=== PATIENT | female | born 1945 | race Caucasian/White ===

== ENCOUNTER → 2024-02-22 10:52 | Outpatient (REF) | payer MEDICARE, BC, SELFPAY ==
[2024-02-22 12:41] LABS: % Basophils 0.7 % (0-2); % Eosinophils 2.6 % (0-6); % Immature Granulocytes 0.6 % (0-0.5); % Lymphocytes 18.8 % (20.5-51.1); % Monocytes 8.8 % (1.7-9.3); % Neutrophils 68.5 % (42.2-75.2); Absolute Basophils 0.1 10^3/uL (0-0.2); Absolute Eosinophils 0.2 10^3/uL (0-0.7); Absolute Lymphocytes 1.4 10^3/uL (1.2-3.4); Absolute Monocytes 0.6 10^3/uL (0.1-0.6); Absolute Neutrophils 4.9 10^3/uL (1.4-6.5); Hematocrit 40.4 % (37.0-47.0); Mean Corp Hgb Conc. 32.2 g/dL (33.0-37.0); Mean Corpuscular Hgb 29.5 pg (27.0-31.0); Mean Corpuscular Volume 91.6 fL (81.0-99.0); Mean Platelet Volume 10.7 fL (7.4-10.4); Nucleated Red Blood Cells % 0 %; Platelet Count 234 10^3/uL (130-400); Red Blood Cell Count 4.41 10^6/uL (4.20-5.40); Red Cell Dist. Width 14.8 % (11.5-14.5); White Blood Cell Count 7.2 10^3/uL (4.8-10.8)
[2024-02-22 12:54] LABS: Erythrocyte Sed Rate 10 mm/hour (0-20)
[2024-02-22 13:19] LABS: ALT (SGPT) 25 U/L (0-35); AST (SGOT) 25 U/L (14-36); Albumin 4.6 g/dl (3.5-5.0); Alkaline Phosphatase 76 U/L (38-126); Blood Urea Nitrogen 14 mg/dl (7-17); Calcium 10.2 mg/dl (8.4-10.2); Carbon Dioxide 29 mmol/L (22-30); Chloride 100 mmol/L (98-107); Glucose 75 mg/dl (70-99); Potassium 4.8 mmol/L (3.5-5.1); Sodium 138 mmol/L (135-145); Total Bilirubin 0.5 mg/dl (0.2-1.3); Total Protein 7.1 g/dl (6.3-8.2); eGFR > 60.00
[2024-02-22 13:20] LABS: C-Reactive Protein < 5.00 mg/L (0.0-10.00)
[2024-02-22 13:27] LABS: Complement C3 109 mg/dl (88-165)
[2024-02-24 02:08] LABS: ANA, IgG Reflex to HEp-2 Detected (None Detected)
[2024-02-24 02:11] LABS: ds-DNA Ab, IgG Reflex To Titer 4 IU (0-24)
[2024-02-24 07:58] LABS: Smith/RNP (ENA), IgG 3 Units (0-19)
[2024-02-24 09:10] LABS: Cardiolipin IgA Antibody <10 APL (<=11); Cardiolipin IgM Antibody 15 MPL (<=12); Cardiolipin Igg Antibody <10 GPL (<=14)
[2024-02-24 09:51] LABS: Smith (ENA) Antibody, IgG 2 AU/mL (0-40)
[2024-02-25 06:20] LABS: ANA, HEp-2, IgG Detected (<1:80)
[2024-02-25 06:24] LABS: ANA Pattern Homogeneous
== END ==
LOC: HWLAB 10:52
PROVIDERS: ATTENDING PHYSICIAN Internal Medicine Rheumatology; FAMILY PHYSICIAN Family Medicine
DX: M15.0 Primary generalized (osteo)arthritis (principal); M35.00 Sjogren syndrome, unspecified; M79.7 Fibromyalgia
CPT/HCPCS: 36415; 80053; 85025; 85652; 86038; 86039; 86140; 86147; 86160; 86225; 86235

== ENCOUNTER → 2024-06-19 11:52 | Outpatient (REF) | payer MEDICARE, BC, SELFPAY ==
[2024-06-19 14:19] LABS: ALT (SGPT) 30 U/L (0-35); AST (SGOT) 33 U/L (14-36); Albumin 4.6 g/dl (3.5-5.0); Alkaline Phosphatase 67 U/L (38-126); Blood Urea Nitrogen 13 mg/dl (7-17); Calcium 9.7 mg/dl (8.4-10.2); Carbon Dioxide 32 mmol/L (22-30); Chloride 100 mmol/L (98-107); Glucose 83 mg/dl (70-99); Potassium 4.4 mmol/L (3.5-5.1); Sodium 138 mmol/L (135-145); Total Bilirubin 0.5 mg/dl (0.2-1.3); Total Protein 6.9 g/dl (6.3-8.2); eGFR > 60.00
[2024-06-19 15:50] LABS: Folate > 20.0 ng/ml (2.76-20); Vitamin B12 659 pg/ml (239-931)
[2024-06-20 09:05] LABS: Glycohemoglobin (HgbA1c) 5.3 % (4.0-5.6)
== END ==
LOC: REG 11:52
PROVIDERS: ATTENDING PHYSICIAN Family Medicine; OTHER PHYSICIAN Internal Medicine Critical Care Medicine; OTHER PHYSICIAN Internal Medicine Gastroenterology; OTHER PHYSICIAN Internal Medicine Rheumatology; OTHER PHYSICIAN Obstetrics & Gynecology
DX: M79.7 Fibromyalgia (principal); M81.0 Age-related osteoporosis without current pathological fracture; G62.9 Polyneuropathy, unspecified; R73.9 Hyperglycemia, unspecified; R53.83 Other fatigue; R20.2 Paresthesia of skin
CPT/HCPCS: 36415; 80053; 82607; 82746; 83036

== ENCOUNTER → 2024-10-29 09:12 | Outpatient (REF) | payer MEDICARE, BC, SELFPAY ==
[2024-10-29 12:36] LABS: % Basophils 0.2 % (0-2); % Eosinophils 0.7 % (0-6); % Immature Granulocytes 0.3 % (0-0.5); % Lymphocytes 2.9 % (20.5-51.1); % Monocytes 3.5 % (1.7-9.3); % Neutrophils 92.4 % (42.2-75.2); Absolute Eosinophils 0.1 10^3/uL (0-0.7); Absolute Lymphocytes 0.4 10^3/uL (1.2-3.4); Absolute Monocytes 0.4 10^3/uL (0.1-0.6); Absolute Neutrophils 11.3 10^3/uL (1.4-6.5); Hematocrit 41.8 % (37.0-47.0); Hemoglobin 13.2 g/dL (12.0-16.0); Mean Corp Hgb Conc. 31.6 g/dL (33.0-37.0); Mean Corpuscular Hgb 29.1 pg (27.0-31.0); Mean Corpuscular Volume 92.1 fL (81.0-99.0); Mean Platelet Volume 11.7 fL (7.4-10.4); Nucleated Red Blood Cells % 0 %; Platelet Count 136 10^3/uL (130-400); Red Blood Cell Count 4.54 10^6/uL (4.20-5.40); Red Cell Dist. Width 14.7 % (11.5-14.5); White Blood Cell Count 12.2 10^3/uL (4.8-10.8)
[2024-10-29 12:58] LABS: ALT (SGPT) 27 U/L (0-35); AST (SGOT) 30 U/L (14-36); Albumin 4.6 g/dl (3.5-5.0); Alkaline Phosphatase 61 U/L (38-126); Blood Urea Nitrogen 20 mg/dl (7-17); Calcium 9.2 mg/dl (8.4-10.2); Carbon Dioxide 29 mmol/L (22-30); Chloride 101 mmol/L (98-107); Glucose 97 mg/dl (70-99); Potassium 4.4 mmol/L (3.5-5.1); Sodium 138 mmol/L (135-145); Total Bilirubin 0.7 mg/dl (0.2-1.3); Total Protein 6.9 g/dl (6.3-8.2); eGFR > 60.00
[2024-10-29 13:32] LABS: Erythrocyte Sed Rate 10 mm/hour (0-20)
[2024-10-31 14:05] LABS: Rheumatoid Agglutinin Less Than 10 IU (<10 IU)
[2024-10-31 16:33] LABS: Lyme Antibody Screen, EIA Negative (Negative)
[2024-11-01 00:05] LABS: ANA, IgG Reflex to HEp-2 Detected (None Detected)
[2024-11-01 01:28] LABS: CCP Antibody IgG/IgA 4 Units (0-19)
== END ==
LOC: HWWDC 09:12
PROVIDERS: ATTENDING PHYSICIAN Obstetrics & Gynecology; FAMILY PHYSICIAN Family Medicine; REFERRING PHYSICIAN Internal Medicine Rheumatology
DX: Z12.31 Encounter for screening mammogram for malignant neoplasm of breast (principal); M15.0 Primary generalized (osteo)arthritis; M19.079 Primary osteoarthritis, unspecified ankle and foot; M35.00 Sjogren syndrome, unspecified; M79.641 Pain in right hand
CPT/HCPCS: 36415; 77063; 77067; 80053; 85025; 85652; 86038; 86140; 86200; 86430; 86618

== ENCOUNTER → 2024-11-08 10:31 | Outpatient (REF) | payer MEDICARE, BC, SELFPAY | LOC: WDC 10:31 | PROVIDERS: ATTENDING PHYSICIAN Obstetrics & Gynecology; FAMILY PHYSICIAN Family Medicine | DX: R92.8 Other abnormal and inconclusive findings on diagnostic imaging of breast (principal) | CPT/HCPCS: 76642 ==

== ENCOUNTER → 2024-12-20 14:54 | Outpatient (REF) | payer MEDICARE, BC, SELFPAY | LOC: MRI 3T 14:54 | PROVIDERS: ATTENDING PHYSICIAN Physician Assistant; FAMILY PHYSICIAN Family Medicine | DX: M47.812 Spondylosis without myelopathy or radiculopathy, cervical region (principal); M54.2 Cervicalgia | CPT/HCPCS: 72141 ==

== ENCOUNTER → 2025-01-09 14:08 | Outpatient (REF) | payer MEDICARE, BC, SELFPAY | LOC: HWRAD 14:08 | PROVIDERS: ATTENDING PHYSICIAN Family Medicine | DX: R91.1 Solitary pulmonary nodule (principal) | CPT/HCPCS: 71250 ==

== ENCOUNTER → 2025-02-05 08:14 | Outpatient (REF) | payer MEDICARE, BC, SELFPAY | LOC: RAD 08:14 | PROVIDERS: ATTENDING PHYSICIAN Internal Medicine Critical Care Medicine; FAMILY PHYSICIAN Family Medicine; OTHER PHYSICIAN Internal Medicine Rheumatology | DX: J47.9 Bronchiectasis, uncomplicated (principal) | CPT/HCPCS: 71046 ==

== ENCOUNTER → 2025-02-13 13:26 | Outpatient (REF) | payer MEDICARE, BC, SELFPAY | LOC: HWRAD 13:26 | PROVIDERS: ATTENDING PHYSICIAN Internal Medicine Critical Care Medicine; FAMILY PHYSICIAN Family Medicine; REFERRING PHYSICIAN Internal Medicine Rheumatology | DX: R91.8 Other nonspecific abnormal finding of lung field (principal) | CPT/HCPCS: 71250 ==

== ENCOUNTER → 2025-05-13 15:32 | Outpatient (REF) | payer MEDICARE, BC, SELFPAY ==
[2025-05-13 16:33] LABS: % Basophils 1.1 % (0-2); % Immature Granulocytes 0.2 % (0-0.5); % Lymphocytes 18.2 % (20.5-51.1); % Monocytes 8.4 % (1.7-9.3); % Neutrophils 70.1 % (42.2-75.2); Absolute Basophils 0.1 10^3/uL (0-0.2); Absolute Eosinophils 0.1 10^3/uL (0-0.7); Absolute Monocytes 0.5 10^3/uL (0.1-0.6); Absolute Neutrophils 3.9 10^3/uL (1.4-6.5); Hematocrit 37.6 % (37.0-47.0); Hemoglobin 12.5 g/dL (12.0-16.0); Mean Corp Hgb Conc. 33.2 g/dL (33.0-37.0); Mean Corpuscular Hgb 28.4 pg (27.0-31.0); Mean Corpuscular Volume 85.5 fL (81.0-99.0); Mean Platelet Volume 10.4 fL (7.4-10.4); Nucleated Red Blood Cells % 0 %; Platelet Count 204 10^3/uL (130-400); Red Cell Dist. Width 14.2 % (11.5-14.5); White Blood Cell Count 5.5 10^3/uL (4.8-10.8)
[2025-05-13 16:56] LABS: ALT (SGPT) 32 U/L (0-35); AST (SGOT) 38 U/L (14-36); Albumin 4.5 g/dl (3.5-5.0); Alkaline Phosphatase 78 U/L (38-126); Blood Urea Nitrogen 9 mg/dl (7-17); Calcium 9.2 mg/dl (8.4-10.2); Carbon Dioxide 27 mmol/L (22-30); Chloride 107 mmol/L (98-107); Glucose 86 mg/dl (70-99); Potassium 4.4 mmol/L (3.5-5.1); Sodium 141 mmol/L (135-145); Total Bilirubin 0.6 mg/dl (0.2-1.3); Total Protein 6.8 g/dl (6.3-8.2); eGFR > 60.00
== END ==
LOC: REG 15:32
PROVIDERS: ATTENDING PHYSICIAN Family Medicine
DX: R10.811 Right upper quadrant abdominal tenderness (principal)
CPT/HCPCS: 36415; 80053; 85025

== ENCOUNTER → 2025-05-14 16:00 | Outpatient (REF) | payer MEDICARE, BC, SELFPAY | LOC: REG 16:00 | PROVIDERS: ATTENDING PHYSICIAN Internal Medicine Gastroenterology; FAMILY PHYSICIAN Family Medicine | DX: R19.7 Diarrhea, unspecified (principal) | CPT/HCPCS: 83993; 87045; 87046; 87324; 87328; 87329; 87427; 87449 ==

== ENCOUNTER → 2025-05-20 11:33 | Outpatient (REF) | payer MEDICARE, BC, SELFPAY | LOC: HWRAD 11:33 | PROVIDERS: ATTENDING PHYSICIAN Internal Medicine Critical Care Medicine; FAMILY PHYSICIAN Family Medicine; OTHER PHYSICIAN Internal Medicine Gastroenterology; OTHER PHYSICIAN Internal Medicine Rheumatology; OTHER PHYSICIAN Obstetrics & Gynecology; REFERRING PHYSICIAN Family Medicine | DX: R91.8 Other nonspecific abnormal finding of lung field (principal); R10.0 Acute abdomen | CPT/HCPCS: 71250; 74176 ==

== ENCOUNTER → 2025-07-04 11:25 | Outpatient (REF) | payer MEDICARE, BC, SELFPAY ==
[2025-07-04 18:27] LABS: Urine Character Clear (Clear)
== END ==
LOC: CLAB 11:25
PROVIDERS: ATTENDING PHYSICIAN Obstetrics & Gynecology
DX: N32.81 Overactive bladder (principal); R31.29 Other microscopic hematuria
CPT/HCPCS: 81003; 87086

== ENCOUNTER → 2025-07-14 13:20 | Outpatient (REF) | payer MEDICARE, BC, SELFPAY | LOC: HWRAD 13:20 | PROVIDERS: ATTENDING PHYSICIAN Internal Medicine Rheumatology; FAMILY PHYSICIAN Family Medicine; REFERRING PHYSICIAN Obstetrics & Gynecology | DX: M80.00XD Age-related osteoporosis with current pathological fracture, unspecified site, subsequent encounter for fracture with routine healing (principal); M81.0 Age-related osteoporosis without current pathological fracture | CPT/HCPCS: 77080; 77081 ==

== ENCOUNTER → 2025-09-02 11:53 | Outpatient (REF) | payer MEDICARE, BC, SELFPAY ==
[2025-09-02 12:21] LABS: Hematocrit 38.6 % (37.0-47.0); Hemoglobin 12.6 g/dL (12.0-16.0); Mean Corp Hgb Conc. 32.6 g/dL (33.0-37.0); Mean Corpuscular Volume 91.3 fL (81.0-99.0); Nucleated Red Blood Cells % 0 %; Platelet Count 194 10^3/uL (130-400); Red Cell Dist. Width 15.1 % (11.5-14.5)
[2025-09-02 12:51] LABS: Albumin 4.5 g/dl (3.5-5.0); Carbon Dioxide 29 mmol/L (22-30); eGFR > 60.00
[2025-09-02 13:02] LABS: ALT (SGPT) 28 U/L (0-35); AST (SGOT) 26 U/L (14-36); Alkaline Phosphatase 63 U/L (38-126); Blood Urea Nitrogen 16 mg/dl (7-17); Calcium 9.4 mg/dl (8.4-10.2); Chloride 101 mmol/L (98-107); Glucose 93 mg/dl (70-99); HDL Cholesterol 104 mg/dl; LDL Cholesterol, Calculated 83 mg/dl; Potassium 4.7 mmol/L (3.5-5.1); Sodium 136 mmol/L (135-145); Total Protein 6.9 g/dl (6.3-8.2); Very Low Density Lipoprotein 10 mg/dl (0-30)
[2025-09-02 13:15] LABS: Vitamin D, 25-OH*** 53.7 ng/mL (30-80)
== END ==
LOC: REG 11:53
PROVIDERS: ATTENDING PHYSICIAN Family Medicine
DX: R53.83 Other fatigue (principal); E55.9 Vitamin D deficiency, unspecified; E78.5 Hyperlipidemia, unspecified
CPT/HCPCS: 36415; 80053; 80061; 82306; 84443; 85025

== ENCOUNTER 2025-10-06 12:27 | Outpatient (RCR) | payer MEDICARE, BC, SELFPAY | END 2025-10-06 23:59 | disposition home or self-care (01) | LOC: RPT 12:27 | PROVIDERS: ATTENDING PHYSICIAN Internal Medicine Gastroenterology; FAMILY PHYSICIAN Family Medicine | DX: M62.89 Other specified disorders of muscle (principal); K58.9 Irritable bowel syndrome, unspecified; N81.10 Cystocele, unspecified; N39.41 Urge incontinence; Z73.6 Limitation of activities due to disability; M62.81 Muscle weakness (generalized) | CPT/HCPCS: 97112; 97163; 97530 ==